=== PATIENT | female | born 1985 | race Caucasian/White ===

== ENCOUNTER 2018-05-11 10:52 | Outpatient (CLI) | payer MEDICAID ==
[~2018-05-11] VITALS: Ht 149.9 cm; Wt 61.8 kg
[2018-05-11 11:11] VITALS: BP 132/92
[2018-05-11] MEDS ORDERED: PREN-3 PO (11:18)
[2018-05-11] MEDS ORDERED: LABE200T3 PO (11:19)
[2018-05-11] MEDS ORDERED: ASPI-515 PO (11:19)
[2018-05-11 11:48] LABS: MICROSCOPIC INDICATED
== END 2018-05-11 14:17 | disposition home or self-care (01) ==
LOC: LDOP 10:52
PROVIDERS: ATTEND Obstetrics & Gynecology
DX: O26.893 Other specified pregnancy related conditions, third trimester (principal); R10.9 Unspecified abdominal pain; O36.8130 Decreased fetal movements, third trimester, not applicable or unspecified; Z3A.34 34 weeks gestation of pregnancy
CPT/HCPCS: 59025; 76819; 81001; 87086; 99201; G0463

== ENCOUNTER 2018-05-19 15:09 | Outpatient (CLI) | payer MEDICAID ==
[~2018-05-19] VITALS: Ht 149.9 cm; Wt 67.3 kg
[~2018-05-19 15:09] MED LIST: ASPI-515 PO; LABE200T3 PO; PREN-3 PO
[2018-05-19 15:34] VITALS: BP 127/88
[2018-05-19 18:06] LABS: MICROSCOPIC INDICATED
== END 2018-05-19 18:44 | disposition home or self-care (01) ==
LOC: LDOP 15:09
PROVIDERS: ATTEND Obstetrics & Gynecology
DX: O26.893 Other specified pregnancy related conditions, third trimester (principal); Z3A.36 36 weeks gestation of pregnancy
CPT/HCPCS: 59025; 81001; 99211; G0463

== ENCOUNTER 2018-05-28 05:58 | Inpatient (IN) | payer MEDICAID ==
[~2018-05-28] VITALS: Ht 149.9 cm; Wt 61.4 kg
[2018-05-28] MEDS ORDERED: OXYTOCIN 30U/ 0.9% NaCL 500ML 500 ML IV PRN (06:05)
[2018-05-28] MEDS ORDERED: OXYTOCIN 30U/ 0.9% NaCL 500ML 500 ML IV ONE (06:05)
[2018-05-28] MEDS ORDERED: OXYTOCIN 30U/ 0.9% NaCL 500ML 500 ML ONE ×2 (06:07→18:35)
[2018-05-28] MEDS ORDERED: MISOPROSTOL 200 MCG TABLET ONE (06:11)
[2018-05-28] MEDS ORDERED: NEWBORN KIT ONE (06:11)
[2018-05-28] MEDS ORDERED: LIDOCAINE/PF 1%, 30ML ONE (06:11)
[2018-05-28] MEDS ORDERED: D5%-LACTATED RINGERS 1,000 ML IV SCH (06:22)
[2018-05-28 06:26] LABS: BASOPHILS % (AUTO) 0 % (0-1); EOSINOPHILS # (AUTO) 0.04 x10^3/uL (0-0.4); EOSINOPHILS % (AUTO) 1 % (1-7); LYMPHOCYTES # (AUTO) 1.79 x10^3/uL (1-3.4); LYMPHOCYTES % (AUTO) 27 % (22-44); MD NO; MEAN CORPUSCULAR HEMOGLOBIN 30.4 pg (27.0-34.8); MEAN CORPUSCULAR HGB CONC 33.6 g/dL (32.4-35.8); MEAN CORPUSCULAR VOLUME 90.5 fL (80-100); MEAN PLATELET VOLUME 7.5 fL (7.4-10.4); MONOCYTES # (AUTO) 0.39 x10^3/uL (0.2-0.8); MONOCYTES % (AUTO) 6 % (2-9); NEUTROPHILS # (AUTO) 4.47 x10^3/uL (1.8-6.8); NEUTROPHILS % (AUTO) 67 % (42-75); PLATELET COUNT 297 x10^3/uL (130-400); RED BLOOD COUNT 3.89 x10^6/uL (3.82-5.3); RED CELL DISTRIBUTION WIDTH 12.5 % (9.6-15.2)
[2018-05-28] MEDS ORDERED: FENTANYL PF 100 MCG/2ML IV PRN (06:30)
[2018-05-28] MEDS ORDERED: ONDANSETRON 2MG/ML, 2ML IVPush PRN (06:30)
[2018-05-28] MEDS ORDERED: FENTANYL PF 100 MCG/2ML IVPush PRN (06:30)
[2018-05-28] MEDS ORDERED: CALCIUM CARBONATE 500 MG TAB.CHEW PO PRN (06:30)
[2018-05-28] MEDS: LACTATED RINGERS 1,000 ML IV SCH ×4 (06:37→18:12)
[2018-05-28] MEDS ORDERED: FENTANYL/BUPIV./NS/PF 250 ML EPIDCONT ONE (07:24)
[2018-05-28] MEDS ORDERED: BUPIVACAINE 0.25% ONE (07:32)
[2018-05-28] MEDS ORDERED: FENTANYL PF 100 MCG/2ML ONE (07:32)
[2018-05-28] MEDS ORDERED: FENTANYL/BUPIV./NS/PF 250 ML EPIDCONT SCH (10:12)
[2018-05-28] MEDS ORDERED: LACTATED RINGERS 1,000 ML IVBOLUS PRN (10:30)
[2018-05-28] MEDS ORDERED: ONDANSETRON 2MG/ML, 2ML ONE (13:59)
[2018-05-28] MEDS: OXYTOCIN 30U/ 0.9% NaCL 500ML 500 ML IV SCH (17:43)
[2018-05-28] MEDS ORDERED: ACETAMINOPHEN 325 MG TABLET PO PRN (18:00)
[2018-05-28] MEDS ORDERED: CARBOPROST TROMETHAMINE 250 MCG/ML, 1ML IM PRN (18:00)
[2018-05-28] MEDS ORDERED: OXYTOCIN 10 UNITS/ML, 1ML IM PRN (18:00)
[2018-05-28] MEDS ORDERED: ONDANSETRON 2MG/ML, 2ML IV PRN (18:00)
[2018-05-28] MEDS ORDERED: METHYLERGONOVINE 0.2 MG/ML IM PRN (18:00)
[2018-05-28] MEDS ORDERED: MISOPROSTOL 200 MCG TABLET PR PRN (18:00)
[2018-05-28] MEDS ORDERED: HYDROcodone/APAP 5/325 TABLET PO PRN (18:00)
[2018-05-28 20:30] VITALS: BP 115/79
[2018-05-29] VITALS: BP 106/67
[2018-05-29] MEDS: LACTATED RINGERS 1,000 ML IV SCH (02:12)
[2018-05-29 02:50] VITALS: BP 127/87
[2018-05-29] MEDS: OXYTOCIN 30U/ 0.9% NaCL 500ML 500 ML IV SCH ×2 (03:43→13:43)
[2018-05-29] MEDS: IBUPROFEN 600 MG TABLET PO PRN ×2 (05:09→12:07)
[2018-05-29 05:50] LABS: BASOPHILS # (AUTO) 0.05 x10^3/uL (0-0.1); BASOPHILS % (AUTO) 0 % (0-1); EOSINOPHILS # (AUTO) 0.03 x10^3/uL (0-0.4); EOSINOPHILS % (AUTO) 0 % (1-7); LYMPHOCYTES # (AUTO) 2.02 x10^3/uL (1-3.4); LYMPHOCYTES % (AUTO) 15 % (22-44); MD NO; MEAN CORPUSCULAR HEMOGLOBIN 30.6 pg (27.0-34.8); MEAN CORPUSCULAR HGB CONC 33.8 g/dL (32.4-35.8); MEAN CORPUSCULAR VOLUME 90.3 fL (80-100); MEAN PLATELET VOLUME 7.7 fL (7.4-10.4); MONOCYTES # (AUTO) 1.15 x10^3/uL (0.2-0.8); MONOCYTES % (AUTO) 8 % (2-9); NEUTROPHILS # (AUTO) 10.45 x10^3/uL (1.8-6.8); NEUTROPHILS % (AUTO) 76 % (42-75); PLATELET COUNT 284 x10^3/uL (130-400); RED BLOOD COUNT 3.68 x10^6/uL (3.82-5.3); RED CELL DISTRIBUTION WIDTH 12.7 % (9.6-15.2)
[2018-05-29 07:45] VITALS: BP 118/80
[2018-05-29] MEDS ORDERED: LABETALOL 200 MG TABLET PO SCH (08:00)
[2018-05-29] MEDS ORDERED: PRENATAL VIT/IRON/FA 1 EACH TABLET PO SCH (09:00)
[2018-05-29] MEDS ORDERED: IBUP-1222 PO (09:30)
[2018-05-29] MEDS ORDERED: SENN-52 PO (09:32)
[2018-05-29 13:40] VITALS: BP 124/88
== END 2018-05-29 14:50 | disposition home or self-care (01) | DRG 774 ==
LOC: LDIP 05:58 → 2NW 20:16
PROVIDERS: ADMIT Obstetrics & Gynecology; ATTEND Obstetrics & Gynecology
PROC: 10E0XZZ Delivery of Products of Conception, External Approach (ICD-10-PCS; principal; 2018-05-28)
PROC: 10907ZC Drainage of Amniotic Fluid, Therapeutic from Products of Conception, Via Natural or Artificial Opening (ICD-10-PCS; 2018-05-28)
PROC: 3E0R3BZ Introduction of Anesthetic Agent into Spinal Canal, Percutaneous Approach (ICD-10-PCS; 2018-05-28)
PROC: 00HU33Z Insertion of Infusion Device into Spinal Canal, Percutaneous Approach (ICD-10-PCS; 2018-05-28)
DX: O10.92 Unspecified pre-existing hypertension complicating childbirth (principal); Z37.0 Single live birth; Z3A.37 37 weeks gestation of pregnancy; Z90.49 Acquired absence of other specified parts of digestive tract; O70.9 Perineal laceration during delivery, unspecified
CPT/HCPCS: 36415; 85025; 86850; 86870; 86900; 86902; 86922; 86923; J2405; J2590; J7120

== ENCOUNTER 2018-07-17 11:54 | Emergency (ER) | payer MEDICAID, OTHER ==
[~2018-07-17] VITALS: Ht 162.6 cm; Wt 58.0 kg
[~2018-07-17 11:54] MED LIST changes: +IBUP-1222 PO; -LABE200T3 PO; +LABE200T6 PO; +SENN-52 PO
[2018-07-17 12:01] VITALS: BP 179/104
== END 2018-07-17 13:06 | disposition home or self-care (01) ==
LOC: ED 12:30
DX: S29.011A Strain of muscle and tendon of front wall of thorax, initial encounter (principal); S46.811A Strain of other muscles, fascia and tendons at shoulder and upper arm level, right arm, initial encounter; V54.6XXA Passenger in pick-up truck or van injured in collision with heavy transport vehicle or bus in traffic accident, initial encounter; Y93.89 Activity, other specified; Y92.89 Other specified places as the place of occurrence of the external cause; Y99.8 Other external cause status
CPT/HCPCS: 71046; 72072; 99284